=== PATIENT | male | born 1945 ===

== ENCOUNTER → 2024-09-19 | Day surgery (SDC) | payer OTHER ==
[2024-09-15 14:46] VITALS: BP 140/70
[~2024-09-19] VITALS: Ht 177.8 cm; Wt 69.9 kg
[~2024-09-19] MED LIST: BUPIVACAINE HCL 30 ML VIAL IJ ONE; BUPIVACAINE HCL/MPF 0.5% 30ML VIAL ONE; CEFAZOLIN SODIUM 1,000 MG VIAL IV ONE; CEFOXITIN SODIUM 2,000 MG VIAL IV ONE; COZAAR50 MG PO; DUI500 PO; LIDOCAINE HCL 1%/EPINEPHRINE 20ML VIAL IJ ONE; LIPITOR20 MG; MEPERIDINE HCL/PF 25 MG/ML VIAL IM PRN; MORPHINE SULFATE 4 MG/ML VIAL IV ONE; PROMETHAZINE HCL 25 MG/ML AMPUL IM PRN; TOPROL XL50 M1 PO; TRAM1TAB98 PO; TRAZODONE HCL50 MG PO; hydrALAZINE HCL 20 MG VIAL ONE
== END | disposition home or self-care (01) ==
LOC: ADM 09-15 12:00 → CIR.AMB 06:00
PROVIDERS: ATTEND Orthopaedic Surgery Sports Medicine
DX: G56.02 Carpal tunnel syndrome, left upper limb (principal); M65.832 Other synovitis and tenosynovitis, left forearm